=== PATIENT | female | born 1990 | race Hispanic/Latino ===

== ENCOUNTER 2022-12-15 05:32 | Inpatient (IN) | payer OTHER ==
[2022-12-14 10:16] LABS: Hemoglobin 10.5 g/dL (12.0-15.5); Platelet Count 266 10x3/uL (150-450)
[2022-12-14 10:43] LABS: HBSAg Index 0.21 S/CO (0-0.99); Hep B Surf Ag Non-Reactive S/CO (NonReactive); Syphilis Antibody Nonreactive (Nonreactive); Syphilis Antibody Index 0.02 S/CO (<1.00 Non-Reactive)
[2022-12-15] MEDS ORDERED: Misoprostol 200 MCG TAB PR PRN (05:35)
[2022-12-15] MEDS ORDERED: Methylergonovine 0.2 MG/ML VIAL IM PRN (05:35)
[2022-12-15] MEDS ORDERED: Bicitra 30 ML UDCUP PO PRN (05:35)
[2022-12-15] MEDS ORDERED: Promethazine HCl 25 MG/ML VIAL IM PRN ×2 (05:35→09:48)
[2022-12-15] MEDS ORDERED: hydrALAZINE 20 MG/ML VIAL SLOW IVP PRN (05:35)
[2022-12-15] MEDS ORDERED: CEFAZOLIN 2 GM in Sodium Chloride 0.9% 100 ML IVPB SCH (05:35)
[2022-12-15] MEDS ORDERED: Carboprost 250 MCG/ML AMP IM PRN (05:35)
[2022-12-15] MEDS ORDERED: Ondansetron PF 4 MG/2 ML Vial IVP PRN ×2 (05:35→09:48)
[2022-12-15] MEDS ORDERED: Tranexamic Acid 1,000 MG/10 ML VIAL IVP PRN (05:35)
[2022-12-15] MEDS ORDERED: Diphenoxylate HCl/Atropine Tablet PO PRN (05:35)
[2022-12-15] MEDS ORDERED: Famotidine/PF 20 mg/2ml Vial SLOW IVP PRN (05:35)
[2022-12-15 05:41] VITALS: BMI 34.4
[2022-12-15] MEDS ORDERED: NS w/ Oxytocin 30 units 500 ML IV SCH (05:45)
[2022-12-15] MEDS ORDERED: Dexamethasone 4 mg/ml Vial ONE (07:16)
[2022-12-15] MEDS ORDERED: PHENYLEPHRINE-NS 100 MCG/ML 10 ML SYRINGE ONE (07:16)
[2022-12-15] MEDS ORDERED: Ondansetron PF 4 MG/2 ML Vial ONE (07:16)
[2022-12-15] MEDS ORDERED: Morphine PF 10 MG/10 ML VIAL ONE (07:16)
[2022-12-15] MEDS ORDERED: Oxytocin 10 UNITS/ML VIAL ONE (07:16)
[2022-12-15] MEDS ORDERED: Fentanyl 100 MCG/2 ML VIAL SLOW IVP PRN (09:48)
[2022-12-15] MEDS ORDERED: Moisturizing Cream (Eucerin) 113 GM JAR TOP PRN (09:48)
[2022-12-15] MEDS ORDERED: diphenhydrAMINE 50 MG/ML VIAL IVP PRN (09:48)
[2022-12-15] MEDS ORDERED: Ondansetron HCl/PF 4 MG/2 ML Vial IVP PRN (09:48)
[2022-12-15] MEDS ORDERED: Naloxone HCl 0.4 mg/ml Vial IV PRN (09:48)
[2022-12-15] MEDS ORDERED: Promethazine HCl 25 MG SUPP PR PRN (09:48)
[2022-12-15] MEDS ORDERED: L&D-Morphine 4 MG/ML VIAL SLOW IVP PRN (09:48)
[2022-12-15] MEDS ORDERED: Meperidine HCl/PF 25 MG/ML VIAL SLOW IVP PRN (09:48)
[2022-12-15] MEDS ORDERED: Naloxone HCl 0.4 mg/ml Vial IVP PRN ×2 (09:48)
[2022-12-15] MEDS ORDERED: Communication Order-Pharmacy FS SCH (10:00)
[2022-12-15] MEDS ORDERED: Ketorolac Tromethamine 30 MG/ML VIAL IVP SCH (10:00)
[2022-12-15] MEDS: Ketorolac Tromethamine 30 MG/ML VIAL IVP PRN ×2 (15:25→22:01)
[2022-12-15] MEDS: Lactated Ringer's 1,000 ML IV SCH ×2 (20:12→22:05)
[2022-12-15] MEDS ORDERED: HYDROcodone/Acetaminophen 5/325 mg Tablet PO PRN (21:53)
[2022-12-15] MEDS ORDERED: Docusate 100 MG CAP PO SCH (22:00)
[2022-12-16] MEDS: Ferrous Sulfate 325 MG TAB PO SCH ×3 (00:03→21:08)
[2022-12-16] MEDS: Lactated Ringer's 1,000 ML IV SCH ×2 (03:41→14:05)
[2022-12-16] MEDS: Ketorolac Tromethamine 30 MG/ML VIAL IVP PRN (03:55)
[2022-12-16] MEDS: HYDROcodone/Acetaminophen 5/325 mg Tablet PO PRN ×2 (08:44→14:29)
[2022-12-16] MEDS: Docusate 100 MG CAP PO SCH ×2 (08:44→21:08)
[2022-12-16] MEDS: Prenatal Vitamin 1 TAB PO SCH (08:44)
[2022-12-16] MEDS: Ibuprofen 800 MG TAB PO SCH ×2 (14:28→21:08)
[2022-12-17] MEDS: Lactated Ringer's 1,000 ML IV SCH ×3 (02:41→21:54)
[2022-12-17] MEDS: HYDROcodone/Acetaminophen 5/325 mg Tablet PO PRN ×3 (05:13→18:31)
[2022-12-17] MEDS: Ibuprofen 800 MG TAB PO SCH ×3 (05:13→21:54)
[2022-12-17] MEDS: Ferrous Sulfate 325 MG TAB PO SCH ×2 (08:11→21:54)
[2022-12-17] MEDS: Docusate 100 MG CAP PO SCH ×2 (09:01→21:54)
[2022-12-17] MEDS: Prenatal Vitamin 1 TAB PO SCH (09:01)
[2022-12-18] MEDS: Ibuprofen 800 MG TAB PO SCH (05:40)
[2022-12-18] MEDS: Lactated Ringer's 1,000 ML IV SCH ×2 (06:12→07:13)
[2022-12-18] MEDS: Ferrous Sulfate 325 MG TAB PO SCH (07:12)
[2022-12-18] MEDS: Prenatal Vitamin 1 TAB PO SCH (08:16)
[2022-12-18] MEDS: Docusate 100 MG CAP PO SCH (08:16)
[2022-12-18 08:40] VITALS: BP 116/78; TEMP 98.2
== END 2022-12-18 11:30 | disposition home or self-care (01) | DRG 788 ==
LOC: CSHLD 05:32 → CSHPP 13:00
PROVIDERS: ADMIT Family Medicine; ATTEND Family Medicine
PROC: 10D00Z1 Extraction of Products of Conception, Low, Open Approach (ICD-10-PCS; principal; 2022-12-15)
DX: O34.211 Maternal care for low transverse scar from previous cesarean delivery (principal); Z3A.39 39 weeks gestation of pregnancy; Z37.0 Single live birth; Z79.899 Other long term (current) drug therapy; K21.9 Gastro-esophageal reflux disease without esophagitis; O99.62 Diseases of the digestive system complicating childbirth
CPT/HCPCS: 51702; 85014; 85018; 85049; 86780; 86850; 86900; 86901; 87340; J1100; J1200; J1885; J2274; J2405; J2590; J3490; S0028